=== PATIENT | male | born 1950 | race Caucasian/White ===

== ENCOUNTER → 2022-05-17 | Outpatient (CLI) | payer MEDICARE, OTHER, SELFPAY ==
[2022-05-18 20:46] LABS: Anti-Glomerular Basement Memb < 0.2 units (0.0-0.9)
== END | disposition home or self-care (01) ==
PROVIDERS: PCP Student in an Organized Health Care Education/Training Program; Referring Provider Internal Medicine; Visit Provider Internal Medicine
DX: N04.9 Nephrotic syndrome with unspecified morphologic changes (principal)
CPT/HCPCS: 36415; 83520

== ENCOUNTER → 2022-05-19 | Outpatient (CLI) | payer MEDICARE, OTHER, SELFPAY ==
--- NOTE | 2022-05-19 14:27 | PFTCOMP ---
COMPLETE PULMONARY FUNCTION TEST INTERPRETATION Brief HPI: Patient is a 72-year-old male, currently under the care of Dr. South, who presents to [facility] for complete pulmonary function tests secondary to diagnosis of asthma. Respiratory therapist reports good effort and reproducible results. Interpretation: Forced expiration spirometry shows a severe large airways obstructive ventilatory defect with an FEV1 of 45% predicted. There is a significant bronchodilator response in FVC and FEV1 by strict ATS criteria. Spirograms are of good quality and plateau slowly, indicating slowly emptying areas of the lungs. The respiratory flow volume loop shows decreased expiratory flow rates at all lung volumes consistent with airway obstruction. Lung volumes by body plethysmography show a normal total lung capacity at 6.52 L, 100% predicted. FRC and RV are elevated out of proportion. Lung volume measurements are consistent with air-trapping. Diffusion capacity by carbon monoxide is decreased at 65% predicted. The airway resistance is elevated. No previous pulmonary function tests were available for review. Impression: Partially reversible severe large airways obstructive ventilatory defect with a symmetric reduction diffusion capacity, resulting in air trapping
== END | disposition home or self-care (01) ==
PROVIDERS: PCP Student in an Organized Health Care Education/Training Program; Referring Provider Internal Medicine; Visit Provider Internal Medicine
DX: J98.4 Other disorders of lung (principal); I50.9 Heart failure, unspecified; J45.909 Unspecified asthma, uncomplicated; R05.3 Chronic cough
CPT/HCPCS: 87070; 87205; 94060; 94726; 94729

== ENCOUNTER → 2022-05-23 | Outpatient (CLI) | payer MEDICARE, OTHER, SELFPAY ==
--- NOTE | 2022-05-23 06:55 | CT_ITS ---
STUDY: CT CHEST WITHOUT CONTRAST REASON FOR EXAM: Male, 72 years old. Compare with [place] CT Feb 2022 for lung calcium RADIATION DOSAGE (If Supplied By Facility): CTDIvol = ( 15.44 ) mGy, DLP = ( 528.49 ) mGycm TECHNIQUE: Transaxial imaging was performed without the administration of intravenous contrast material. Multiplanar coronal and sagittal images were reformatted. Individualized dose optimization techniques were used for this CT. COMPARISON: Attempted comparison is made with prior examination dated 10/25/2022. The outside examination is not diagnostic. FINDINGS: CHEST Small benign-appearing bilateral axillary lymph nodes. Scattered bilateral calcified granulomas involving both lungs and both upper and lower lobes. Small bilateral pleural effusions left slightly greater than the right. There is evidence of a scarring in the lingular segment of the left upper lobe. There is a 1.5 cm x 1.2 cm nodular density in the lateral aspect of the lingular segment of the left upper lobe in the region of the linear scarring. Calcific densities are seen at that site. This is suggestive of fibrocalcific scarring. A follow-up CT scan in 3 months is recommended for further evaluation. Sternal cerclage wires and vascular clips are present from a prior sternotomy and coronary artery bypass graft procedure (CABG). Calcification of the mitral valve annulus. There are calcifications of the coronary arteries. There are multiple small lymph nodes within the mediastinum, which are normal in size and morphology most compatible with reactive lymph hyperplasia. The largest lymph node measures 1.8 cm and is in the right paratracheal region. Calcified bilateral hilar lymph nodes. Normal unenhanced pulmonary arteries. There is atherosclerotic calcification of the aortic arch and its major branches with tortuosity and elongation of the aortic arch and descending thoracic aorta. There are multi-level degenerative changes of the thoracic spine. There is no demonstrated abnormality of the visualized upper abdomen. CT/Chest without Contrast IMPRESSION: Multiple calcified granulomas seen in both lungs with calcification of both hilar lymph nodes. 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 A repeat CT scan in 3 months is recommended for further evaluation. Small bilateral pleural effusions left greater than right. Electronically Signed: Jose Soares MD at 13:52 EDT ,
[2022-05-23 07:11] VITALS: PULSE 77; PULSE 80; PULSE 82; PULSE 85; PULSE 89; PULSE 91; PULSE 93; O2SAT 95; O2SAT 96; O2SAT 97; O2SAT 98
--- NOTE | 2022-05-24 07:19 | PCM.PSN.6M ---
PSN 6 Minute Walk Test 6 Minute Walk Test 6 Minute Walk Test: 6 Minute Walk Test PSN:6-Minute Walk Test Start: 05/23/22 07:11 Freq: Status: Active Protocol: [id number] Document 05/23/22 07:11 KAYLARIAN (Rec: 05/23/22 07:13 KAYLARIAN [id number]) 6 Minute Walk Test Date Performed 05/23/22 Time Performed 07:00 Height 5 ft 10 in Weight: 200 lb Weight in Pounds 200.[address]: Adrian South Assistive device used: None Pre-test Oxygen Delivery Method Room Air Pulse Ox (%) 95 Pulse Rate (60-100 beats/min) 77 Dyspnea Moisés Scale (0-10) 0 Exertion Moisés Scale (6-20) 6 1st minute Oxygen Delivery Method Room Air Pulse Ox (%) 97 Pulse Rate (60-100 beats/min) 82 2nd minute Oxygen Delivery Method Room Air Pulse Ox (%) 96 Pulse Rate (60-100 beats/min) 85 3rd minute Oxygen Delivery Method Room Air Pulse Ox (%) 97 Pulse Rate (60-100 beats/min) 89 4th minute Oxygen Delivery Method Room Air Pulse Ox (%) 98 Pulse Rate (60-100 beats/min) 89 5th minute Oxygen Delivery Method Room Air Pulse Ox (%) 98 Pulse Rate (60-100 beats/min) 91 6th minute Oxygen Delivery Method Room Air Pulse Ox (%) 96 Pulse Rate (60-100 beats/min) 93 Dyspnea Moisés Scale (0-10) 3 Exertion Moisés Scale (6-20) 14 Post-test Oxygen Delivery Method Room Air Pulse Ox (%) 96 Pulse Rate (60-100 beats/min) 80 Full Laps Walked 15 Partial Lap, Number of Tiles Walked 30 Total Distance Walked (ft) 915 Interpretation Interpretation: The patient ambulated 915 feet over the course of 6 minutes beginning on room air without assistive devices. Pretesting oxygen saturation was noted to be 95% on room air. With ambulation, the mary jane oxygen saturation was 96%. There was no significant exertional oxygen desaturation. Recommendations Recommendations: There is no indication for the use of supplemental oxygen at this time.
== END | disposition home or self-care (01) ==
PROVIDERS: PCP Student in an Organized Health Care Education/Training Program; Referring Provider Internal Medicine; Visit Provider Internal Medicine
DX: J98.4 Other disorders of lung (principal); I50.9 Heart failure, unspecified; R05.3 Chronic cough; M25.473 Effusion, unspecified ankle; N04.9 Nephrotic syndrome with unspecified morphologic changes; R06.02 Shortness of breath
CPT/HCPCS: 71250; 94618